=== PATIENT | female | born 1990 | race Caucasian/White ===

== ENCOUNTER → 2017-09-02 11:08 | Outpatient (CLI) | payer OTHER, SELFPAY ==
--- NOTE | 2017-09-02 11:12 | US_ITS ---
US transvaginal HISTORY: Dysfunctional uterine bleeding, pelvic pain ITS.REASON: DUB ORDERING PHYSICIAN: Kiya Steward MD PATIENT AGE: 27 years COMPARISON: FINDINGS: The uterus is 7 x 4 x 5 cm with a combined endometrial thickness of 1 cm. No uterine mass evident. The right ovary is 3 x 3 cm. Left ovary is 2.4 x 1.8 cm. There are small bilateral ovarian follicles. Bilateral ovarian blood flow is present. A macrolobulated with possible small hemorrhagic cyst of the right ovary at 1.4 cm 1.4 cm cyst is present involving the right ovary with some low level echoes. Possibly related to a hemorrhagic cyst. No cul-de-sac fluid. IMPRESSION: 1. Endometrial thickness upper limits of normal and may be due to patient's phase of menstruation. 2. Small bilateral ovarian follicles
== END ==
PROVIDERS: PCP Emergency Medicine; Visit Provider Obstetrics & Gynecology
DX: N92.6 Irregular menstruation, unspecified (principal)
CPT/HCPCS: 76830

== ENCOUNTER → 2023-01-09 23:52 | Outpatient (CLI) | payer OTHER, SELFPAY ==
[2023-01-09 18:47] LABS: Hemoglobin A1C 5.4 % (4.0-6.0)
[2023-01-09 18:49] LABS: Basophils # 0.1 K/mm3 (0-0.2); Basophils % 0.8 % (0.1-2.0); Eosinophils # 0.2 K/mm3 (0.0-0.4); Eosinophils % 2.6 % (0.1-12.0); Hematocrit 47.4 % (37.0-47.0); Hemoglobin 15.5 g/dL (12.2-16.2); Lymphocytes # 3.6 K/mm3 (0.7-4.5); Lymphocytes % 38.3 % (10-50); Mean Corpuscular HGB Conc 32.6 g/dL (31.8-35.4); Mean Corpuscular Hemoglobin 29.5 pg (27.0-31.2); Mean Corpuscular Volume 90.5 fl (81-99); Mean Platelet Volume 12.4 fl (7.4-10.4); Monocytes # 0.5 K/mm3 (0.1-1.0); Monocytes % 4.8 % (1.7-9.3); Neutrophils % 53.5 % (37.0-80.0); Platelet Count 329 K/mm3 (142-424); Red Blood Count 5.24 M/mm3 (4.20-5.40); Red Cell Distribution Width 14.2 % (11.5-17.5); White Blood Count 9.3 K/mm3 (4.8-10.8)
[2023-01-09 19:18] LABS: Alanine Aminotransferase 27 U/L (12-78); Albumin Level 5.1 g/dl (3.5-5.0); Albumin/Globulin Ratio 1.4 (1.1-1.8); Alkaline Phosphatase 91 U/L (38-126); Anion Gap 21.4 mEq/L (5-15); Aspartate Amino Transferase 29 U/L (14-36); Bilirubin,Total 0.2 mg/dl (0.2-1.3); Blood Urea Nitrogen 9 mg/dl (7-17); Calcium 9.9 mg/dl (8.4-10.2); Carbon Dioxide 21 mmol/L (22.0-30.0); Chloride 106 mmol/L (98-107); Chol/HDL Ratio 7.5 (1-3.5); Cholesterol 323 mg/dl (140-200); Estimated Glomerular Filt Rate 98 ml/min (>60); GFR (African American) 118 ML/MIN (>60); Globulin 3.6 g/dL (1.3-3.2); Glucose 100 mg/dl (74-100); HDL Cholesterol 43 mg/dl (40-60); Potassium 4.4 mmoL/L (3.5-5.1); Sodium 144 mmol/L (136-145); Total Protein,Serum 8.7 g/dl (6.3-8.2); Triglycerides 105 mg/dl (30-150); VLDL Cholesterol 21 mg/dL (0-40)
[2023-01-09 19:31] LABS: Direct LDL Cholesterol 227.32 mg/dL (100-129)
[2023-01-09 19:35] LABS: T4 (Thyroxine) 7.4 ug/dl (5.53-11.0)
[2023-01-09 19:36] LABS: 25-OH Vitamin D, Total 16.6 ng/mL (30-100)
== END ==
PROVIDERS: PCP Emergency Medicine; Visit Provider Emergency Medicine
DX: Z00.00 Encounter for general adult medical examination without abnormal findings (principal); N92.1 Excessive and frequent menstruation with irregular cycle; E55.9 Vitamin D deficiency, unspecified; Z79.899 Other long term (current) drug therapy
CPT/HCPCS: 80053; 80061; 82306; 83036; 84436; 84443; 85025

== ENCOUNTER → 2023-02-16 09:14 | Outpatient (CLI) | payer OTHER, SELFPAY | PROVIDERS: PCP Emergency Medicine; Visit Provider Emergency Medicine | DX: J02.9 Acute pharyngitis, unspecified (principal) | CPT/HCPCS: 87070 ==

== ENCOUNTER → 2023-02-16 09:40 | Outpatient (CLI) | payer OTHER, SELFPAY | PROVIDERS: PCP Emergency Medicine; Visit Provider Emergency Medicine | DX: J02.9 Acute pharyngitis, unspecified (principal) ==